=== PATIENT | female | born 1950 | race Two or more races ===

== ENCOUNTER 2017-06-01 14:57 | Emergency (ER) | payer OTHER ==
[~2017-06-01] VITALS: Ht 160 cm; Wt 59.9 kg
--- NOTE | 2017-06-01 15:02 | NUR ---
PT AMBULATORY TO ER BED 09 ACCOMPANIED BY FAMILY C/O WORSENING HEADACHE, BLURRING OF VISION TO LT EYE X 3 MONTHS. PT STATES WAS SEEN AT [facility] AND WAS JUST RECENTLY PRESCRIBED W/ ANTI HYPERTENSIVE MEDICATION. 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 AWAITING MD TELLEZ.
--- NOTE | 2017-06-01 16:01 | NUR ---
DR CAMACHO AT BEDSIDE FOR EVAL.
[2017-06-01] MEDS ORDERED: IBUPROFEN 400 MG TABLET PO ONE (16:30)
[2017-06-01] MEDS ORDERED: ACETAMINOPHEN ES 500 MG TABLET PO ONE (16:30)
--- NOTE | 2017-06-01 16:30 | NUR ---
PT TO RADIOLOGY FOR HEAD CT SCAN VIA [facility].
[2017-06-01] MEDS ORDERED: ACETAMINOPHEN ES 500 MG TABLET ONE (16:39)
[2017-06-01] MEDS ORDERED: IBUPROFEN 400 MG TABLET ONE (16:39)
[2017-06-01] MEDS ORDERED: ASPIRIN 81 MG TAB.CHEW ONE (17:20)
--- NOTE | 2017-06-01 17:23 | NUR ---
IV LINE STARTED BLOOD DRAWN AND SENT TO LAB.
[2017-06-01 17:27] LABS: BASOPHILS % (AUTO) 0.6 % (0.0-2.0); EOSINOPHILS % (AUTO) 0.5 % (0.0-6.0); HEMATOCRIT 43 % (33-45); LYMPHOCYTES # (AUTO) 1.9 /CMM (0.8-4.8); LYMPHOCYTES % (AUTO) 23.2 % (20.0-44.0); MEAN CORPUSCULAR HEMOGLOBIN 28 PG (26.0-33.0); MEAN CORPUSCULAR HGB CONC 33 g/dl (31.0-36.0); MEAN CORPUSCULAR VOLUME 84 fL (82-100); MONOCYTES # (AUTO) 0.5 /CMM (0.1-1.30); MONOCYTES % (AUTO) 6.1 % (2.0-12.0); NEUTROPHILS # (AUTO) 5.9 /CMM (1.8-8.9); NEUTROPHILS % (AUTO) 69.6 % (43.0-81.0); PLATELET COUNT (AUTO) 167 /CMM (150-450); RDW COEFFICIENT OF VARIATION 12.4 (11.5-15.0); RED BLOOD CELL COUNT(AUTO) 5.11 MIL/uL (4.0-5.2); WHITE BLOOD COUNT (AUTO) 8.3 K/uL (4.3-11.0)
[2017-06-01] MEDS ORDERED: ASPIRIN 325 MG TABLET PO ONE (17:30)
[2017-06-01] MEDS ORDERED: LISI10TA5 PO (17:31)
[2017-06-01] MEDS ORDERED: AMLO5TAB4 PO (17:31)
[2017-06-01 17:38] LABS: CARBON DIOXIDE 28 mmol/L (21-32); CHLORIDE 102 mmol/L (98-107); CREATININE 0.8 mg/dL (0.6-1.3); GLUCOSE 111 mg/dL (74-106); SODIUM SERUM 139 mmol/L (136-145); UREA NITROGEN, BLOOD 11 mg/dL (7-18)
[2017-06-01 17:44] LABS: ALANINE AMINOTRANSFERASE 17 U/L (12-78); ALBUMIN 4.1 g/dL (3.4-5.0); ALKALINE PHOSPHATASE 57 U/L (46-116); ASPARTATE AMINOTRANSFERASE 15 U/L (15-37); BILIRUBIN,DIRECT 0.1 mg/dL (0.0-0.2); BILIRUBIN,TOTAL 0.7 mg/dL (0.2-1.0); INR 0.95 (0.87-1.13); PROTHROMBIN TIME 9.9 SECS (9.5-12.7); TOTAL PROTEIN, SERUM 7.9 g/dL (6.4-8.2)
[2017-06-01 17:46] LABS: TROPONIN I < 0.017 ng/mL (0.00-0.056)
--- NOTE | 2017-06-01 17:59 | NUR ---
CALLED [facility] SPOKE WITH KIM, EXPECTING A CALL BACK FROM A DOCTOR.
--- NOTE | 2017-06-01 18:06 | NUR ---
SANDER EDGAR CALLED, ON THE PHONE WITH DR CAMACHO.
--- NOTE | 2017-06-01 18:29 | NUR ---
[facility] CALLED PATIENT WILL BE TRANSFERED TO [facility]. ACCEPTING DR GUEVARA PATIENT WILL BE GOING TO THE ER NUMBER TO GIVE REPORT ETA [id number] ETA.
[2017-06-01 19:08] VITALS: BP 157/80
--- NOTE | 2017-06-01 19:11 | NUR ---
REPORT GIVEN TO JULIAN. TRANSPORT AMBULANCE AT BEDSIDE. PT TRANSPORTED IN STABLE CONDITION.
== END 2017-06-01 19:18 | disposition short-term general hospital (02) ==
LOC: ER 14:59
DX: I63.9 Cerebral infarction, unspecified (principal); H53.8 Other visual disturbances; I10 Essential (primary) hypertension
CPT/HCPCS: 36415; 70450; 80048; 80076; 84484; 85025; 85730; 93005; 99285; A4606; Z7610